=== PATIENT | male | born 1955 | race Caucasian/White ===

== ENCOUNTER 2024-01-24 10:08 | Outpatient (CLI) | payer MEDICARE, BC | END 2024-01-24 10:09 | disposition home or self-care (01) | LOC: SCSMRI 10:08 | PROVIDERS: ATTEND Specialist | DX: H90.3 Sensorineural hearing loss, bilateral (principal); H74.8X2 Other specified disorders of left middle ear and mastoid; R90.82 White matter disease, unspecified; I67.89 Other cerebrovascular disease | CPT/HCPCS: 36415; 70553; 76376; 82565 ==